=== PATIENT | female | born 1980 | race African-American/Black ===

== ENCOUNTER 2019-05-18 10:10 | Inpatient (IN) | payer OTHER ==
[2019-05-18 11:25] VITALS: BMI 24.7
--- NOTE | 2019-05-18 12:17 | HP ---
"CIWA Score Nausea/Vomitin-No Nausea/No Vomiting Muscle Tremors: None Anxiety: 0-No Anxiety, at Ease Agitation: 0-Normal Activity Paroxysmal Sweats: No Perspiration Orientation: 1-Uncertain about Date Tacttile Disturbances: 0-None Auditory Disturbances: 0-None Visual Disturbances: 3-Moderate Sensitivity Headache: 0-None Present CIWA-Ar Total Score: 4 - Admission Criteria OASAS Guidelines: Admission for Medically Managed Detox: Requires at least one of the followin. CIWA greater than 12 2. Seizures within the past 24 hours 3. Delirium tremens within the past 24 hours 4. Hallucinations within the past 24 hours 5. Acute intervention needed for co occurring medical disorder 6. Acute intervention needed for co occurring psychiatric disorder 7. Severe withdrawal that cannot be handled at a lower level of care (continued vomiting, continued diarrhea, abnormal vital signs) requiring intravenous medication and/or fluids 8. Admission ROS [facility] Allergies/Adverse Reactions: Allergies Allergy/AdvReac Type Severity Reaction Status Date / Time No Known Allergies Allergy Verified 05/18/19 11:13 History of Present Illness: Search Terms: sen ovalle, 1980 Search Date: 05/18/2019 12:12:35 PM The Drug Utilization Report below displays all of the controlled substance prescriptions, if any, that your patient has filled in the last twelve months. The information displayed on this report is compiled from pharmacy submissions to the Department, and accurately reflects the information as submitted by the pharmacies. This report was requested by: Gena Duncan | Reference #: [id number] There are no results for the search terms that you entered. pt here form [facility] , reports etoh use , cocaine 13 bags/day . pt is poorhistorian, falls asleep frequently during interview, awakened by verbal stimuli, states has not slept in 1 week. PMHX : asthma, ptsd , depression , anxiety ages 22 through 6 , children live in [place] . Exam Limitations: Clinical Condition, Intoxication - Review of Systems Constitutional: Loss of Appetite EENT: reports: No Symptoms Reported Respiratory: reports: See HPI Cardiac: reports: No Symptoms Reported GI: reports: Poor Appetite : reports: No Symptoms Reported Musculoskeletal: reports: No Symptoms Reported Integumentary: reports: No Symptoms Reported Neuro: reports: See HPI Endocrine: reports: No Symptoms Reported Psychiatric: reports: Disorientated, other (drowsy) Patient History - Smoking Cessation Smoking history: Smoker current status UNK - Substances abused Alcohol Substance route: Oral Frequency: Daily Amount used: \\1 PINT OF VODKA, 24 CAND OF BEER Age of first use: 13 Date of last use: 05/18/19 Crack Substance route: Smoking Frequency: Daily Amount used: 13 BAGS Age of first use: 24 Date of last use: 05/18/19 Admission Physical Exam BHS - Vital Signs Vital Signs: Vital Signs - 24 hr 05/18/19 05/18/19 11:16 11:27 Temperature 98.9 F 98.9 F Pulse Rate 113 H 113 H Respiratory 20 20 Rate Blood Pressure 101/66 101/66 - Physical General Appearance: Yes: Mild Distress, Intoxicated, Other (drowsy) HEENTM: Yes: EOMI, Hearing grossly Normal, Normocephalic, Muffled/Hoarse Voice Respiratory: Yes: Chest Non-Tender, Lungs Clear, Normal Breath Sounds, No Respiratory Distress, No Accessory Muscle Use Neck: Yes: No masses,lesions,Nodules, Trachea in good position Cardiology: Yes: Regular Rhythm, Regular Rate, S1, S2, Tachycardia Abdominal: Yes: Non Tender, Soft Musculoskeletal: Yes: Other (staggering gait) Extremities: Yes: Normal Range of Motion, Non-Tender Neurological: Yes: Respond to painful stimul, Disoriented Integumentary: Yes: Warm - Diagnostic (1) Alcohol intoxication Current Visit: Yes Status: Acute Qualifiers: Complication of substance-induced condition: uncomplicated Qualified Code(s ): F10.920 - Alcohol use, unspecified with intoxication, uncomplicated (2) Cocaine abuse Current Visit: Yes Status: Chronic Breathalyzer - Breathalyzer Breathalyzer: 0 Urine Drug Screen - Test Device Lot number: [id number] Expiration date: 03/10/21 - Control Is test valid?: Yes - Results Drug screen NEGATIVE: No Urine drug screen results: EL-Cocaine, BZO-Benzodiazepines Inpatient Rehab Admission - Rehab Decision to Admit Inpatient rehab admission?: No"
[2019-05-18] MEDS ORDERED: MAG HYDROX/AL HYDROX/SIMETH 30 ML UNIT-DOSE CUP PO PRN (12:33)
[2019-05-18] MEDS ORDERED: IBUPROFEN 400 MG TABLET (FP) PO PRN (12:33)
[2019-05-18] MEDS ORDERED: MELATONIN 5 MG TABLETS PO PRN (12:33)
[2019-05-18] MEDS ORDERED: hydrOXYzine PAMOATE 25 MG CAPSULE (FP) PO PRN (12:33)
[2019-05-18] MEDS ORDERED: MAGNESIUM HYDROX 2400MG/30ML ORAL SUSPENSION 30 ML CUP PO PRN (12:33)
[2019-05-18] MEDS ORDERED: BISMUTH SUBSALICYLATE 262 MG/15 ML BTL PO PRN (12:33)
[2019-05-18] MEDS ORDERED: MAGNESIUM CITRATE 300 ML BOTTLE PO PRN (12:33)
[2019-05-18] MEDS ORDERED: MENTHOL/PHENOL 1 EACH UD MM PRN (12:33)
[2019-05-18] MEDS ORDERED: ACETAMINOPHEN 325 MG TABLET (FP) PO PRN ×2 (12:33)
--- NOTE | 2019-05-18 14:51 | EKG ---
Test Reason : Blood Pressure : / mmHG Vent. Rate : 100 BPM Atrial Rate : 100 BPM P-R Int : 144 ms QRS Dur : 084 ms QT Int : 392 ms P-R-T Axes : 063 055 067 degrees QTc Int : 505 ms NORMAL SINUS RHYTHM LEFT ATRIAL ENLARGEMENT VOLTAGE CRITERIA FOR LEFT VENTRICULAR HYPERTROPHY NONSPECIFIC T WAVE ABNORMALITY PROLONGED QT ABNORMAL ECG NO PREVIOUS ECGS AVAILABLE Confirmed by MD MERA, ALIYAH ([id number]) on 05/18/2019 2:51:06 PM Referred By: STONE Confirmed By:ALIYAH TESFAYE MD
[2019-05-18] MEDS: diazePAM 5 MG TABLET PO SCH ×2 (15:55→23:02)
[2019-05-18] MEDS: diazePAM 5 MG TABLET PO PRN (18:46)
[2019-05-18] MEDS: THIAMINE HCL 100 MG TABLET (FP) PO SCH (23:02)
[2019-05-19] MEDS: diazePAM 5 MG TABLET PO SCH ×3 (06:16→22:30)
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
[2019-05-19 10:11] LABS: HEMATOCRIT 39.6 % (32.4-45.2); HEMOGLOBIN 12.8 GM/dL (10.7-15.3); MCH 28.2 pg (25.7-33.7); MCHC 32.4 g/dl (32.0-36.0); MEAN CELL VOLUME 86.8 fl (80-96); PLATELET COUNT 278 K/MM3 (134-434); RBC 4.56 M/mm3 (3.60-5.2); RDW 15.1 % (11.6-15.6); WHITE BLOOD COUNT 5.2 K/mm3 (4.0-10.0)
[2019-05-19] MEDS: PRENATAL VITAMINS W/ FOLIC ACID TABLET (FP) PO SCH (10:13)
[2019-05-19] MEDS: hydrOXYzine PAMOATE 50 MG CAPSULE (FP) PO PRN ×2 (10:13→18:21)
[2019-05-19 10:23] LABS: ALBUMIN 3.4 g/dl (3.4-5.0); BILIRUBIN,TOTAL 0.4 mg/dL (0.2-1); BLOOD UREA NITROGEN 9.9 mg/dL (7-18); CALCIUM 8.8 mg/dL (8.5-10.1); CREATININE 0.9 mg/dL (0.55-1.3); POTASSIUM 4.1 mmol/L (3.5-5.1)
[2019-05-19] MEDS: diazePAM 5 MG TABLET PO PRN ×2 (14:44→18:19)
--- NOTE | 2019-05-19 15:49 | PN ---
S CIWA - CIWA Score Nausea/Vomitin-Mild Nausea/No Vomiting Muscle Tremors: 2 Anxiety: 3 Agitation: 1-Slight > Activity Paroxysmal Sweats: 2 Orientation: 0-Oriented Tacttile Disturbances: 0-None Auditory Disturbances: 0-None Visual Disturbances: 1-Very Mild Sensitivity Headache: 2-Mild CIWA-Ar Total Score: 12 BHS Progress Note (SOAP) Subjective: 39 years old female admitted on 05/18/19 for alcohol withdrawal sx management treating with valium detox regiment patient is aggressive irritable threatening and oppositional toward staff nurse counselor and chief writer discussed the consequences of therapeutic chemical detox environment as well as the safety of all patients and staffers patient states that this is first [facility] admission and 2 weeks ago was admitted into another detox facility patient reports that he is not allow to returning to that facility patient says that he is taking psychotropic medications for PTSD and not taking any since been "kick out" from the facility patient verbally agrees to maintain self control but refuses to sign the contract for safety seen by psychiatrist resume psychotropic medications Objective: 05/19/19 15:59 Vital Signs Temperature 98.1 F 05/19/19 12:40 Pulse Rate 105 H 05/19/19 12:40 Respiratory Rate 18 05/19/19 12:40 Blood Pressure 141/87 05/19/19 12:40 O2 Sat by Pulse Oximetry (%) Laboratory Last Values WBC 5.2 K/mm3 (4.0-10.0) 05/19/19 07:30 RBC 4.56 M/mm3 (3.60-5.2) 05/19/19 07:30 Hgb 12.8 GM/dL (10.7-15.3) 05/19/19 07:30 Hct 39.6 % (32.4-45.2) 05/19/19 07:30 MCV 86.8 fl (80-96) 05/19/19 07:30 MCH 28.2 pg (25.7-33.7) 05/19/19 07:30 MCHC 32.4 g/dl (32.0-36.0) 05/19/19 07:30 RDW 15.1 % (11.6-15.6) 05/19/19 07:30 Plt Count 278 K/MM3 (134-434) 05/19/19 07:30 MPV 9.0 fl (7.5-11.1) 05/19/19 07:30 Sodium 137 mmol/L (136-145) 05/19/19 07:30 Potassium 4.1 mmol/L (3.5-5.1) 05/19/19 07:30 Chloride 104 mmol/L (98-107) 05/19/19 07:30 Carbon Dioxide 27 mmol/L (21-32) 05/19/19 07:30 Anion Gap 7 MMOL/L (8-16) L 05/19/19 07:30 BUN 9.9 mg/dL (7-18) 05/19/19 07:30 Creatinine 0.9 mg/dL (0.55-1.3) 05/19/19 07:30 Est GFR (CKD-EPI)AfAm 92.70 05/19/19 07:30 Est GFR (CKD-EPI)NonAf 79.98 05/19/19 07:30 Random Glucose 78 mg/dL (74-106) 05/19/19 07:30 Calcium 8.8 mg/dL (8.5-10.1) 05/19/19 07:30 Total Bilirubin 0.4 mg/dL (0.2-1) 05/19/19 07:30 AST 28 U/L (15-37) 05/19/19 07:30 ALT 20 U/L (13-61) 05/19/19 07:30 Alkaline Phosphatase 101 U/L (45-117) 05/19/19 07:30 Total Protein 7.0 g/dl (6.4-8.2) 05/19/19 07:30 Albumin 3.4 g/dl (3.4-5.0) 05/19/19 07:30 POC Urine HCG, Qual Negative 05/18/19 11:30 RPR Titer Nonreactive (NONREACTIVE) 05/19/19 07:30 lab noted Assessment: 05/19/19 15:59 alcohol withdrawal Plan: valium regiment
[2019-05-19] MEDS ORDERED: cloNIDine HCL 0.1 MG TABLET PO ONE (19:04)
[2019-05-19] MEDS ORDERED: PRAZOSIN HCL 1 MG CAPSULE PO SCH (22:00)
[2019-05-19] MEDS ORDERED: QUEtiapine FUMARATE 100 MG TABLET (FP) PO SCH (22:00)
[2019-05-19] MEDS: THIAMINE HCL 100 MG TABLET (FP) PO SCH (22:30)
[2019-05-20] MEDS: hydrOXYzine PAMOATE 50 MG CAPSULE (FP) PO PRN ×2 (05:25→11:38)
[2019-05-20] MEDS ORDERED: diazePAM 5 MG TABLET PO ONE (06:00)
[2019-05-20 06:14] VITALS: TEMP 97.7
[2019-05-20 09:20] VITALS: BP 125/75; PULSE 114
[2019-05-20] MEDS: PRENATAL VITAMINS W/ FOLIC ACID TABLET (FP) PO SCH (11:02)
--- NOTE | 2019-05-20 13:45 | DS ---
[facility] Detox Discharge Summary Admission Date: 05/18/19 Discharge Date: 05/20/19 - History Present History: Alcohol Dependence Additional Comments: 39 years old female admitted on 05/18/19 for alcohol withdrawal sx management treated with valium detox regiment patient has completed the valium regiment and tolerated well patient had anger out burst episode x 1 multidisciplinary team guidance encourage and support patient was doing well through out the detox seen by psychiatrist begin seroquel and prazosin alert oriented x 3 speech clearly coherently cardiac s1s2 regular rate rhythm ekg indicated left atrial enlargement patient is asymptomatic denies dizziness no shortness of breath no chest pain respiratory clear lungs bilaterally on auscultation extremities full range of motion - Physical Exam Results Vital Signs: Vital Signs Temperature 97.7 F 05/20/19 08:55 Pulse Rate 114 H 05/20/19 08:55 Respiratory Rate 16 05/20/19 08:55 Blood Pressure 125/75 05/20/19 08:55 O2 Sat by Pulse Oximetry (%) Pertinent Admission Physical Exam Findings: alcohol withdrawal Laboratory Last Values WBC 5.2 K/mm3 (4.0-10.0) 05/19/19 07:30 RBC 4.56 M/mm3 (3.60-5.2) 05/19/19 07:30 Hgb 12.8 GM/dL (10.7-15.3) 05/19/19 07:30 Hct 39.6 % (32.4-45.2) 05/19/19 07:30 MCV 86.8 fl (80-96) 05/19/19 07:30 MCH 28.2 pg (25.7-33.7) 05/19/19 07:30 MCHC 32.4 g/dl (32.0-36.0) 05/19/19 07:30 RDW 15.1 % (11.6-15.6) 05/19/19 07:30 Plt Count 278 K/MM3 (134-434) 05/19/19 07:30 MPV 9.0 fl (7.5-11.1) 05/19/19 07:30 Sodium 137 mmol/L (136-145) 05/19/19 07:30 Potassium 4.1 mmol/L (3.5-5.1) 05/19/19 07:30 Chloride 104 mmol/L (98-107) 05/19/19 07:30 Carbon Dioxide 27 mmol/L (21-32) 05/19/19 07:30 Anion Gap 7 MMOL/L (8-16) L 05/19/19 07:30 BUN 9.9 mg/dL (7-18) 05/19/19 07:30 Creatinine 0.9 mg/dL (0.55-1.3) 05/19/19 07:30 Est GFR (CKD-EPI)AfAm 92.70 05/19/19 07:30 Est GFR (CKD-EPI)NonAf 79.98 05/19/19 07:30 Random Glucose 78 mg/dL (74-106) 05/19/19 07:30 Calcium 8.8 mg/dL (8.5-10.1) 05/19/19 07:30 Total Bilirubin 0.4 mg/dL (0.2-1) 05/19/19 07:30 AST 28 U/L (15-37) 05/19/19 07:30 ALT 20 U/L (13-61) 05/19/19 07:30 Alkaline Phosphatase 101 U/L (45-117) 05/19/19 07:30 Total Protein 7.0 g/dl (6.4-8.2) 05/19/19 07:30 Albumin 3.4 g/dl (3.4-5.0) 05/19/19 07:30 POC Urine HCG, Qual Negative 05/18/19 11:30 RPR Titer Nonreactive (NONREACTIVE) 05/19/19 07:30 lab noted - Treatment Hospital Course: Detox Protocol Followed, Detoxed Safely, Responded well, Discharged Condition Good, Rehab Referral Accepted Patient has Accepted [facility] - Medication Discharge Medications: Ambulatory Orders Albuterol Sulfate Inhaler - [Ventolin HFA Inhaler -] 2 inh PO Q4H PRN 05/18/19 Quetiapine Fumarate [Seroquel -] 100 mg PO HS 05/18/19 traZODone HCL [Desyrel -] 100 mg PO HS 05/18/19 Escitalopram Oxalate [Lexapro -] 20 mg PO TID 05/20/19 Prazosin HCl [Minipress] 2 mg PO HS 05/20/19 - Diagnosis (1) Alcohol dependence with uncomplicated intoxication Current Visit: Yes Status: Acute (2) Substance induced mood disorder Current Visit: Yes Status: Suspected - AMA Did Patient Leave Against Medical Advice: No CIWA Score - CIWA Score Nausea/Vomitin-No Nausea/No Vomiting Muscle Tremors: 1-None Visible, but [place] Anxiety: 2 Agitation: 0-Normal Activity Paroxysmal Sweats: 1-Minimal Palms Moist Orientation: 0-Oriented Tacttile Disturbances: 0-None Auditory Disturbances: 0-None Visual Disturbances: 0-None Headache: 2-Mild CIWA-Ar Total Score: 6
== END 2019-05-20 14:26 | disposition other institution (70) | DRG 774 ==
LOC: YASAS 10:10 → Y3N 13:39
PROVIDERS: ADMIT Allergy & Immunology; ATTEND Allergy & Immunology
PROC: HZ2ZZZZ Detoxification Services for Substance Abuse Treatment (ICD-10-PCS; principal; 2019-05-18)
DX: F10.230 Alcohol dependence with withdrawal, uncomplicated (principal); F14.20 Cocaine dependence, uncomplicated; F19.24 Other psychoactive substance dependence with psychoactive substance-induced mood disorder; F19.282 Other psychoactive substance dependence with psychoactive substance-induced sleep disorder; F43.10 Post-traumatic stress disorder, unspecified; J45.909 Unspecified asthma, uncomplicated
CPT/HCPCS: 36415; 71045-TC-FY; 80053; 81025; 85027; 86593; 93005; 93010; J0735

== ENCOUNTER 2019-05-20 11:37 | Inpatient (IN) | payer OTHER ==
[2019-05-20] MEDS ORDERED: ACETAMINOPHEN 325 MG TABLET (FP) PO PRN ×2 (13:47→13:49)
[2019-05-20] MEDS ORDERED: MAG HYDROX/AL HYDROX/SIMETH 30 ML UNIT-DOSE CUP PO PRN ×3 (13:47→13:54)
[2019-05-20] MEDS ORDERED: IBUPROFEN 400 MG TABLET (FP) PO PRN ×3 (13:47→13:54)
[2019-05-20] MEDS ORDERED: LOPERAMIDE HCL 2 MG CAPSULE PO PRN ×3 (13:47→13:54)
[2019-05-20] MEDS ORDERED: MAGNESIUM HYDROX 2400MG/30ML ORAL SUSPENSION 30 ML CUP PO PRN ×3 (13:47→13:54)
[2019-05-20] MEDS ORDERED: MAGNESIUM CITRATE 300 ML BOTTLE PO PRN ×3 (13:47→13:54)
[2019-05-20] MEDS ORDERED: P-EPHED 60MG/TRIPROLIDI 2.5MG TABLET PO PRN ×3 (13:47→13:54)
[2019-05-20] MEDS ORDERED: guaiFENesin 200 MG/10 ML 10 ML UNIT-DOSE CUPS PO PRN ×3 (13:47→13:54)
[2019-05-20] MEDS ORDERED: MENTHOL/PHENOL 1 EACH UD MM PRN ×3 (13:47→13:54)
--- NOTE | 2019-05-20 13:47 | HP ---
[facility] Rehab Assess/Revision - Admission History Admitted to Rehab from: [facility] Date of Admission to Rehab: 05/20/19 - Vital signs Vital Signs: Vital Signs Period Temp Pulse Resp BP Sys/Palma Pulse Ox Last 24 Hr 97.8 F 98 18 135/92 - Findings Detox History & Physical reviewed: Yes Concur with findings: Yes Comments/Additional Findings: transferred from detox to rehab admission as per protocol Inpatient Rehab Admission - Rehab Decision to Admit Inpatient rehab admission?: Yes - Initial Determination Are CD services needed?: Yes Free of communicable disease: Yes Not in need of hospitalization: Yes - Rehab Admission Criteria Previous failed treatment: Yes Poor recovery environment: Yes Comorbidities: Yes Lacks judgement: Yes Patient is meeting Inpatient Rehab admission criteria:: Yes
[2019-05-20] MEDS ORDERED: hydrOXYzine PAMOATE 50 MG CAPSULE (FP) PO PRN (13:49)
[2019-05-20] MEDS: hydrOXYzine PAMOATE 50 MG CAPSULE (FP) PO PRN ×2 (16:51→21:05)
[2019-05-20] MEDS: ALBUTEROL SO4 HFA INHALER IH PRN (19:53)
[2019-05-20] MEDS: THIAMINE HCL 100 MG TABLET (FP) PO SCH (21:04)
[2019-05-20] MEDS: PRAZOSIN HCL 1 MG CAPSULE PO SCH (21:04)
[2019-05-20] MEDS: MELATONIN 5 MG TABLETS PO PRN (21:05)
[2019-05-20] MEDS ORDERED: MELATONIN 5 MG TABLETS PO PRN ×2 (22:00)
[2019-05-20] MEDS ORDERED: QUEtiapine FUMARATE 100 MG TABLET (FP) PO SCH ×2 (22:00)
[2019-05-20] MEDS ORDERED: THIAMINE HCL 100 MG TABLET (FP) PO SCH ×2 (22:00)
[2019-05-21] MEDS: hydrOXYzine PAMOATE 50 MG CAPSULE (FP) PO PRN ×3 (07:17→17:44)
[2019-05-21] MEDS: PRENATAL VITAMINS W/ FOLIC ACID TABLET (FP) PO SCH (09:28)
[2019-05-21] MEDS ORDERED: PRENATAL VITAMINS W/ FOLIC ACID TABLET (FP) PO SCH ×2 (10:00)
--- NOTE | 2019-05-21 12:37 | PN ---
[facility] Progress Note Note: Pt is a 39 y/o female with a hx of KACY-alcohol,cocaine admitted to rehab from [address] [place] [address]. Pt reports she has no primary care and goes to [facility] for medical care. Reports no steady address and has gone to [facility] or [facility] for medical care. PMHx:Asthma. Psych Hx:PTSD,Depression,Anxiety. Vital Signs - 24 hr 05/20/19 05/21/19 05/21/19 22:00 00:38 03:34 Temperature Pulse Rate 101 H Respiratory 18 18 Rate Blood Pressure 141/85 05/21/19 05/21/19 06:33 06:49 Temperature 98.1 F Pulse Rate 93 H Respiratory 18 18 Rate Blood Pressure 135/91 Alert o x 3 nad oob ambulating with steady gait extremities/skin:no edema;skin intact. A/P KACY new rehab pt Maintain safety increase po fluids cont rehab D/w pt about need to connect with primary care once stable at a location.
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
[2019-05-21] MEDS: QUEtiapine FUMARATE 50 MG TABLET PO SCH (21:10)
[2019-05-21] MEDS: PRAZOSIN HCL 1 MG CAPSULE PO SCH (21:10)
[2019-05-21] MEDS: THIAMINE HCL 100 MG TABLET (FP) PO SCH (21:10)
[2019-05-21] MEDS ORDERED: ALBUTEROL SO4 0.083% IH SOL 2.5 MG/3 ML VIAL.NEB. NEB PRN (21:11)
[2019-05-22] MEDS: hydrOXYzine PAMOATE 50 MG CAPSULE (FP) PO PRN ×3 (07:43→18:13)
[2019-05-22] MEDS: ESCITALOPRAM OXALATE 10 MG TABLET PO SCH (09:21)
[2019-05-22] MEDS: PRENATAL VITAMINS W/ FOLIC ACID TABLET (FP) PO SCH (09:21)
[2019-05-22] MEDS: ALBUTEROL SO4 HFA INHALER IH PRN (09:21)
[2019-05-22] MEDS: ACETAMINOPHEN 325 MG TABLET (FP) PO PRN (18:12)
[2019-05-22] MEDS: THIAMINE HCL 100 MG TABLET (FP) PO SCH (21:10)
[2019-05-22] MEDS: PRAZOSIN HCL 1 MG CAPSULE PO SCH (21:10)
[2019-05-22] MEDS: QUEtiapine FUMARATE 50 MG TABLET PO SCH (21:10)
[2019-05-23] MEDS: hydrOXYzine PAMOATE 50 MG CAPSULE (FP) PO PRN ×4 (06:40→21:30)
[2019-05-23] MEDS: PRENATAL VITAMINS W/ FOLIC ACID TABLET (FP) PO SCH (09:45)
[2019-05-23] MEDS: ESCITALOPRAM OXALATE 10 MG TABLET PO SCH (09:45)
[2019-05-23] MEDS: ACETAMINOPHEN 325 MG TABLET (FP) PO PRN (18:08)
[2019-05-23] MEDS ORDERED: PT OWN MED DRAWER 7, Y5N ONE (20:28)
[2019-05-23] MEDS: THIAMINE HCL 100 MG TABLET (FP) PO SCH (21:01)
[2019-05-23] MEDS: QUEtiapine FUMARATE 50 MG TABLET PO SCH (21:01)
[2019-05-23] MEDS: PRAZOSIN HCL 1 MG CAPSULE PO SCH (21:02)
[2019-05-24] MEDS: hydrOXYzine PAMOATE 50 MG CAPSULE (FP) PO PRN ×4 (03:39→21:13)
[2019-05-24] MEDS: ESCITALOPRAM OXALATE 10 MG TABLET PO SCH (09:00)
[2019-05-24] MEDS: PRENATAL VITAMINS W/ FOLIC ACID TABLET (FP) PO SCH (09:00)
--- NOTE | 2019-05-24 15:21 | PN ---
Psychiatric Progress Note Vital Signs: Vital Signs Period Temp Pulse Resp BP Sys/Palma Pulse Ox Last 24 Hr 98.0 F 85-86 16-18 120-143/90-92 Date of Session: 05/24/19 Chief Complaint:: " I still have nightmares ". HPI: Called to re-evaluate this patient, seen two days ago, for complaints of insomnia + nightmares. Hospital course is otherwise unremarkable. ROS: Unremarkable. Patient is noted as ambulatory, well-related, active and cognitively intact. Current Medications: Active Medications Generic Name Dose Route Start Last Admin Trade Name Freq PRN Reason Stop Dose Admin Acetaminophen 650 mg 05/20/19 13:54 05/23/19 18:08 Tylenol - PO 650 mg Q4H PRN Administration FEVER Al Hydroxide/Mg Hydroxide 30 ml 05/20/19 13:54 Mylanta Oral Suspension - PO Q6H PRN DYSPEPSIA Albuterol Sulfate 2 puff 05/20/19 13:58 05/22/19 09:21 Ventolin Hfa Inhaler - IH 2 puff Q4H PRN Administration ASTHMA Albuterol Sulfate 1 amp 05/21/19 21:11 Ventolin 0.083% Nebulizer Soln - NEB Q6H PRN SHORT OF BREATH/WHEEZING Escitalopram Oxalate 10 mg 05/22/19 10:00 05/24/19 09:00 Lexapro - PO 10 mg DAILY CONNER Administration Eucalyptus/Menthol/Phenol/Sorbitol 1 each 05/20/19 13:54 Cepastat Lozenge - MM Q4H PRN SORE THROAT Guaifenesin 10 ml 05/20/19 13:54 05/22/19 09:24 Robitussin - PO 10 ml Q6H PRN Administration COUGH Hydroxyzine Pamoate 50 mg 05/20/19 13:54 05/24/19 08:57 Vistaril - PO 50 mg Q4H PRN Administration AGITATION Ibuprofen 400 mg 05/20/19 13:54 Motrin - PO Q6H PRN Pain Level 4-6 Loperamide HCl 4 mg 05/20/19 13:54 Imodium - PO Q6H PRN DIARRHEA Magnesium Citrate 300 ml 05/20/19 13:54 Citroma - PO Q48H PRN CONSTIPATION Magnesium Hydroxide 30 ml 05/20/19 13:54 Milk Of Magnesia - PO DAILY PRN CONSTIPATION Melatonin 5 mg 05/20/19 22:00 05/20/19 21:05 Melatonin PO 5 mg HS PRN Administration INSOMNIA Prazosin HCl 2 mg 05/20/19 22:00 05/23/19 21:02 Minipress - PO 2 mg HS CONNER Administration Multivit/Folic Acid/Iron 1 tab 05/21/19 10:00 05/24/19 09:00 Vitamins (Sjr) - PO 1 tab DAILY CONNER Administration Pseudoephedrine/Triprolidine 1 combo 05/20/19 13:54 Actifed - PO TID PRN NASAL CONGESTION Quetiapine Fumarate 200 mg 05/24/19 22:00 Seroquel - PO HS CONNER Thiamine HCl 100 mg 05/20/19 22:00 05/23/19 21:01 Vitamin B1 - PO 100 mg HS CONNER Administration Medication(s) Change(s): Seroquel dose is raised to 200 mg po hs. Informed consent (verbal) secured from the patient. Plan of care is accepted by patient. Current Side Effect: No Lab tests ordered: No Lab tests reviewed: Yes Provider note:: Chart reviewed. Vitals checked : normal. Patient is interviewed in the presence of immigration guard Heidi Chavez (with patient's verbal permission) . Offers vague complaints of nightmares (unable to describe) and insomnia. " I need more seroquel. I used to be on 200 mg at night." Patient is observed as well rested, decently groomed and cooperative. Receptive to teaching. Seroquel dose adjusted. Patient is in agreement. Stable mental status. See MSE report for details. Patient is at her baseline. Total face to face time:: 25 Mental Status Exam - Mental Status Exam Alert and Oriented to: Time, Place, Person Cognitive Function: Good Patient Appearance: Well Groomed Mood: Hopeful, Euthymic Affect: Appropriate, Normal Range Patient Behavior: Appropriate, Cooperative Speech Pattern: Clear, Appropriate Voice Loudness: Normal Thought Process: Intact, Goal Oriented Thought Disorder: Not Present Hallucinations: Denies Suicidal Ideation: Denies Homicidal Ideation: Denies Insight/Judgement: Fair Sleep: Poorly, Difficulty falling asleep Appetite: Good Gait/Station: Normal Psychiatric Treatment Plan - Problem List (1) Alcohol use disorder Current Visit: Yes Comment: . (2) Cocaine dependence Current Visit: Yes Comment: . (3) PTSD (post-traumatic stress disorder) Current Visit: Yes Comment: .As per self-report. (4) History of depression Current Visit: Yes Comment: . (5) Insomnia Current Visit: Yes Comment: .
[2019-05-24] MEDS: PRAZOSIN HCL 1 MG CAPSULE PO SCH (21:13)
[2019-05-24] MEDS: QUEtiapine FUMARATE 200 MG TABLET PO SCH (21:14)
[2019-05-24] MEDS: THIAMINE HCL 100 MG TABLET (FP) PO SCH (21:14)
[2019-05-24] MEDS: MELATONIN 5 MG TABLETS PO PRN (21:14)
[2019-05-25] MEDS: hydrOXYzine PAMOATE 50 MG CAPSULE (FP) PO PRN ×3 (06:23→18:13)
[2019-05-25] MEDS: ESCITALOPRAM OXALATE 10 MG TABLET PO SCH (09:48)
[2019-05-25] MEDS: PRENATAL VITAMINS W/ FOLIC ACID TABLET (FP) PO SCH (09:49)
[2019-05-25] MEDS ORDERED: PT OWN MED DRAWER 7, Y5N ONE (14:22)
[2019-05-25] MEDS: ACETAMINOPHEN 325 MG TABLET (FP) PO PRN (18:12)
[2019-05-25] MEDS: QUEtiapine FUMARATE 200 MG TABLET PO SCH (21:24)
[2019-05-25] MEDS: THIAMINE HCL 100 MG TABLET (FP) PO SCH (21:24)
[2019-05-25] MEDS: PRAZOSIN HCL 1 MG CAPSULE PO SCH (21:24)
[2019-05-26] MEDS: hydrOXYzine PAMOATE 50 MG CAPSULE (FP) PO PRN ×4 (00:41→19:35)
[2019-05-26] MEDS: ACETAMINOPHEN 325 MG TABLET (FP) PO PRN ×3 (06:28→19:35)
[2019-05-26] MEDS: PRENATAL VITAMINS W/ FOLIC ACID TABLET (FP) PO SCH (09:59)
[2019-05-26] MEDS: ESCITALOPRAM OXALATE 10 MG TABLET PO SCH (09:59)
[2019-05-26] MEDS: ALBUTEROL SO4 HFA INHALER IH PRN (10:00)
[2019-05-26] MEDS ORDERED: ALBUTEROL SO4 0.083% IH SOL 2.5 MG/3 ML VIAL.NEB. NEB PRN (19:11)
[2019-05-26] MEDS ORDERED: PT OWN MED DRAWER 7, Y5N ONE ×2 (20:06→21:09)
[2019-05-26] MEDS: THIAMINE HCL 100 MG TABLET (FP) PO SCH (21:08)
[2019-05-26] MEDS: PRAZOSIN HCL 1 MG CAPSULE PO SCH (21:08)
[2019-05-26] MEDS: QUEtiapine FUMARATE 200 MG TABLET PO SCH (21:08)
[2019-05-27] MEDS: hydrOXYzine PAMOATE 50 MG CAPSULE (FP) PO PRN ×3 (06:05→15:53)
[2019-05-27] MEDS: ACETAMINOPHEN 325 MG TABLET (FP) PO PRN ×2 (07:31→15:53)
[2019-05-27] MEDS: ALBUTEROL SO4 HFA INHALER IH PRN (07:32)
[2019-05-27] MEDS ORDERED: PT OWN MED DRAWER 7, Y5N ONE (07:33)
[2019-05-27] MEDS: PRENATAL VITAMINS W/ FOLIC ACID TABLET (FP) PO SCH (10:09)
[2019-05-27] MEDS: ESCITALOPRAM OXALATE 10 MG TABLET PO SCH (10:09)
[2019-05-27] MEDS: PRAZOSIN HCL 1 MG CAPSULE PO SCH (21:13)
[2019-05-27] MEDS: THIAMINE HCL 100 MG TABLET (FP) PO SCH (21:13)
[2019-05-27] MEDS: QUEtiapine FUMARATE 200 MG TABLET PO SCH (21:13)
[2019-05-28] MEDS: hydrOXYzine PAMOATE 50 MG CAPSULE (FP) PO PRN ×2 (02:53→09:26)
[2019-05-28] MEDS: ALBUTEROL SO4 HFA INHALER IH PRN (09:26)
[2019-05-28] MEDS: PRENATAL VITAMINS W/ FOLIC ACID TABLET (FP) PO SCH (09:27)
[2019-05-28] MEDS: ESCITALOPRAM OXALATE 10 MG TABLET PO SCH (09:27)
[2019-05-28] MEDS: ACETAMINOPHEN 325 MG TABLET (FP) PO PRN (09:28)
[2019-05-28] MEDS: PRAZOSIN HCL 1 MG CAPSULE PO SCH (21:07)
[2019-05-28] MEDS: THIAMINE HCL 100 MG TABLET (FP) PO SCH (21:07)
[2019-05-28] MEDS: QUEtiapine FUMARATE 200 MG TABLET PO SCH (21:07)
[2019-05-29] MEDS: hydrOXYzine PAMOATE 50 MG CAPSULE (FP) PO PRN ×2 (01:56→09:12)
[2019-05-29 07:05] VITALS: TEMP 97.5
--- NOTE | 2019-05-29 08:57 | PN ---
[facility] Progress Note Note: Patient is discharged today. Scripts for 30 days supply of medications(Seroquel 200 mg/hs, Prazosin 2 mg/hs, Lexapro 10 mg/day) are electronically transmitted to [facility] at [address] [place] [address]
--- NOTE | 2019-05-29 09:04 | DS ---
[facility] - [facility] Admission Date: 05/20/19 Discharge Date: 05/29/19 - History Present History: Alcohol dependence, Cocaine dependence Pertinent Past History: pt admitted from [facility]; reports etoh use and cocaine 13 bags/ day. PMHX : asthma, ptsd , depression , anxiety - Discharge Physical Exam Vital Signs: Vital Signs Temperature 97.5 F L 05/29/19 06:15 Pulse Rate 87 05/29/19 06:15 Respiratory Rate 16 05/29/19 06:15 Blood Pressure 135/89 05/29/19 06:15 O2 Sat by Pulse Oximetry (%) Pertinent Admission Physical Exam Findings: Physical General Appearance: No apparent distress HEENTM: Normocephalic, PERRLA Respiratory: Lungs Clear, Neck: Supple Cardiology: S1, S2, Abdominal: +BS, Non Tender, Soft Musculoskeletal: steady gait, full ROM, full weight bearing Neurological: CN 2-12 intact - Treatment Discharge Condition: Outpatient referral accepted (Will go to [facility] for 1 week, then [facility] for continued treatment. Medically stable for discharge.) Hospital Course: Patient attended groups, had 1:1 with her counselor, was seen by the psychiatric service. She had no acute or urgent medical problems while in rehab. - Medication Discharge Medications: Ambulatory Orders Albuterol Sulfate Inhaler - [Ventolin HFA Inhaler -] 2 inh PO Q4H PRN #1 inhaler 05/29/19 Escitalopram Oxalate [Lexapro -] 10 mg PO DAILY #30 tablet 05/29/19 Melatonin 5 mg PO HS PRN #14 tab 05/29/19 Prazosin HCl [Minipress] 2 mg PO HS #30 capsule 05/29/19 Quetiapine Fumarate [Seroquel -] 200 mg PO HS #30 tablet 05/29/19 - Medication-Assisted Treatment (MAT) Medication-Assisted Treatment (MAT): No - Discharge Instructions Diet, activity, other medical instructions: Diet: as tolerated; avoid tree nuts-read labels, advise servers when eating in restaurants. Activity: as tolerated Other medical instructions: Please follow up with aftercare referral. - Diagnosis (1) Alcohol use disorder Current Visit: Yes Status: Chronic (2) Cocaine dependence Current Visit: Yes Status: Chronic - Follow-up Referral Minutes to complete discharge: 15 - AMA Did Patient Leave Against Medical Advice: No
[2019-05-29] MEDS: PRENATAL VITAMINS W/ FOLIC ACID TABLET (FP) PO SCH (09:11)
[2019-05-29] MEDS: ESCITALOPRAM OXALATE 10 MG TABLET PO SCH (09:11)
[2019-05-29 09:23] VITALS: BP 121/79; PULSE 93
== END 2019-05-29 09:30 | disposition home or self-care (01) | DRG 772 ==
LOC: YASAS 11:37 → Y3E 11:38
PROVIDERS: ADMIT Allergy & Immunology; ATTEND Allergy & Immunology
PROC: HZ42ZZZ Group Counseling for Substance Abuse Treatment, Cognitive-Behavioral (ICD-10-PCS; principal; 2019-05-20)
DX: F10.20 Alcohol dependence, uncomplicated (principal); F14.20 Cocaine dependence, uncomplicated; F19.24 Other psychoactive substance dependence with psychoactive substance-induced mood disorder; F41.9 Anxiety disorder, unspecified; F32.9 Major depressive disorder, single episode, unspecified; F43.10 Post-traumatic stress disorder, unspecified; G47.00 Insomnia, unspecified; J45.909 Unspecified asthma, uncomplicated; Z91.410 Personal history of adult physical and sexual abuse; Z91.018 Allergy to other foods; Z91.19 Patient's noncompliance with other medical treatment and regimen

== ENCOUNTER 2021-06-07 20:08 | Inpatient (IN) | payer OTHER ==
[2021-06-07 20:46] VITALS: BMI 27.4
[2021-06-07] MEDS ORDERED: ALBUTEROL SO4 HFA INHALER IH PRN (21:32)
[2021-06-07] MEDS ORDERED: NICOTINE POLACRILEX 2 MG GUM BUC PRN (21:33)
[2021-06-07] MEDS ORDERED: MAG HYDROX/AL HYDROX/SIMETH 30 ML UNIT-DOSE CUP PO PRN (21:33)
[2021-06-07] MEDS ORDERED: LOPERAMIDE HCL 2 MG CAPSULE PO PRN (21:33)
[2021-06-07] MEDS ORDERED: ONDANSETRON *ODT* 4 MG TABLET SL PRN (21:33)
[2021-06-07] MEDS ORDERED: ACETAMINOPHEN 325 MG TABLET (FP) PO PRN ×2 (21:33)
[2021-06-07] MEDS ORDERED: MAGNESIUM HYDROX 2400MG/30ML ORAL SUSPENSION 30 ML CUP PO PRN (21:33)
[2021-06-07] MEDS ORDERED: MAGNESIUM CITRATE 300 ML BOTTLE PO PRN (21:33)
[2021-06-07] MEDS ORDERED: IBUPROFEN 400 MG TABLET (FP) PO PRN (21:33)
[2021-06-07] MEDS ORDERED: NICOTINE 10 MG CARTRIDGE (INHALER) IH PRN (21:33)
[2021-06-07] MEDS ORDERED: MENTHOL/PHENOL 1 EACH UD MM PRN (21:33)
[2021-06-07] MEDS ORDERED: BISMUTH SUBSALICYLATE 524 MG/30 ML PO PRN (21:33)
[2021-06-07] MEDS ORDERED: diazePAM 5 MG TABLET PO PRN (21:35)
[2021-06-08] MEDS ORDERED: METHOCARBAMOL 500 MG TABLET ONE (00:54)
[2021-06-08] MEDS: THIAMINE HCL 100 MG TABLET (FP) PO SCH ×2 (01:00→23:27)
[2021-06-08] MEDS: METHOCARBAMOL 500 MG TABLET PO PRN ×2 (01:00→19:03)
[2021-06-08] MEDS: hydrOXYzine PAMOATE 25 MG CAPSULE (FP) PO SCH ×6 (01:10→23:26)
[2021-06-08] MEDS ORDERED: diazePAM 5 MG TABLET ONE (09:41)
[2021-06-08] MEDS ORDERED: hydrOXYzine PAMOATE 25 MG CAPSULE (FP) PO ONE (09:41)
[2021-06-08] MEDS: PRENATAL VITAMINS W/ FOLIC ACID TABLET (FP) PO SCH (09:44)
[2021-06-08] MEDS: diazePAM 5 MG TABLET PO SCH ×3 (10:00→23:27)
[2021-06-08] MEDS ORDERED: cloNIDine HCL 0.1 MG TABLET PO PRN (11:30)
[2021-06-08 12:51] LABS: HEMATOCRIT 31.2 % (32.4-45.2); HEMOGLOBIN 10.2 GM/dL (10.7-15.3); MCH 27.4 pg (25.7-33.7); MCHC 32.7 g/dl (32.0-36.0); MEAN CELL VOLUME 83.6 fl (80-96); MEAN PLT VOLUME 9.1 fl (7.5-11.1); PLATELET COUNT 184 10^3/uL (134-434); RBC 3.73 M/mm3 (3.60-5.2); RDW 14.1 % (11.6-15.6)
[2021-06-08 12:59] LABS: CALCIUM 8.7 mg/dL (8.5-10.1)
[2021-06-08 13:00] LABS: ALBUMIN 3.4 g/dl (3.4-5.0); BLOOD UREA NITROGEN 9.3 mg/dL (7-18)
[2021-06-08 13:01] LABS: CREATININE 0.7 mg/dL (0.55-1.3)
[2021-06-08 13:02] LABS: TOT PROT 6.7 g/dl (6.4-8.2)
[2021-06-08 13:03] LABS: BILIRUBIN,TOTAL 0.7 mg/dL (0.2-1)
[2021-06-08] MEDS: MELATONIN 5 MG TABLETS PO PRN (23:26)
[2021-06-08] MEDS: PRAZOSIN HCL 1 MG CAPSULE PO SCH (23:27)
[2021-06-09] MEDS: diazePAM 5 MG TABLET PO SCH ×4 (06:05→23:04)
[2021-06-09] MEDS: hydrOXYzine PAMOATE 25 MG CAPSULE (FP) PO SCH ×5 (06:05→23:03)
[2021-06-09] MEDS: PRENATAL VITAMINS W/ FOLIC ACID TABLET (FP) PO SCH (11:14)
[2021-06-09] MEDS: METHOCARBAMOL 500 MG TABLET PO PRN ×2 (11:15→18:19)
[2021-06-09] MEDS: MELATONIN 5 MG TABLETS PO PRN (23:03)
[2021-06-09] MEDS: THIAMINE HCL 100 MG TABLET (FP) PO SCH (23:03)
[2021-06-09] MEDS: PRAZOSIN HCL 1 MG CAPSULE PO SCH (23:04)
[2021-06-10] MEDS: diazePAM 5 MG TABLET PO SCH ×3 (05:53→23:14)
[2021-06-10] MEDS: hydrOXYzine PAMOATE 25 MG CAPSULE (FP) PO SCH ×5 (05:54→23:13)
[2021-06-10] MEDS: PRENATAL VITAMINS W/ FOLIC ACID TABLET (FP) PO SCH (10:55)
[2021-06-10] MEDS: diazePAM 5 MG TABLET PO PRN ×2 (10:56→18:02)
[2021-06-10] MEDS: METHOCARBAMOL 500 MG TABLET PO PRN (10:58)
[2021-06-10] MEDS: ESCITALOPRAM OXALATE 10 MG TABLET PO SCH (12:21)
[2021-06-10] MEDS: POTASSIUM CHLORIDE ORAL LIQUID 20 MEQ/15 ML PO SCH ×2 (14:07→23:12)
[2021-06-10] MEDS: MELATONIN 5 MG TABLETS PO PRN (23:12)
[2021-06-10] MEDS: PRAZOSIN HCL 1 MG CAPSULE PO SCH (23:13)
[2021-06-10] MEDS: THIAMINE HCL 100 MG TABLET (FP) PO SCH (23:13)
[2021-06-10] MEDS: QUEtiapine FUMARATE 100 MG TABLET (FP) PO SCH (23:13)
[2021-06-11] MEDS: hydrOXYzine PAMOATE 25 MG CAPSULE (FP) PO SCH ×5 (06:22→22:27)
[2021-06-11] MEDS: diazePAM 5 MG TABLET PO SCH ×2 (06:22→18:06)
[2021-06-11] MEDS: POTASSIUM CHLORIDE ORAL LIQUID 20 MEQ/15 ML PO SCH ×2 (10:32→22:25)
[2021-06-11] MEDS: PRENATAL VITAMINS W/ FOLIC ACID TABLET (FP) PO SCH (10:32)
[2021-06-11] MEDS: METHOCARBAMOL 500 MG TABLET PO PRN (10:33)
[2021-06-11] MEDS: ESCITALOPRAM OXALATE 10 MG TABLET PO SCH (10:33)
[2021-06-11] MEDS: PRAZOSIN HCL 1 MG CAPSULE PO SCH (22:25)
[2021-06-11] MEDS: QUEtiapine FUMARATE 100 MG TABLET (FP) PO SCH (22:25)
[2021-06-11] MEDS: THIAMINE HCL 100 MG TABLET (FP) PO SCH (22:25)
[2021-06-12] MEDS ORDERED: diazePAM 5 MG TABLET PO ONE (06:00)
[2021-06-12] MEDS: hydrOXYzine PAMOATE 25 MG CAPSULE (FP) PO SCH ×5 (06:06→23:02)
[2021-06-12] MEDS: PRENATAL VITAMINS W/ FOLIC ACID TABLET (FP) PO SCH (10:18)
[2021-06-12] MEDS: ESCITALOPRAM OXALATE 10 MG TABLET PO SCH (10:18)
[2021-06-12] MEDS: POTASSIUM CHLORIDE ORAL LIQUID 20 MEQ/15 ML PO SCH ×2 (10:20→23:03)
[2021-06-12] MEDS: QUEtiapine FUMARATE 100 MG TABLET (FP) PO SCH (23:02)
[2021-06-12] MEDS: THIAMINE HCL 100 MG TABLET (FP) PO SCH (23:02)
[2021-06-12] MEDS: PRAZOSIN HCL 1 MG CAPSULE PO SCH (23:02)
[2021-06-13] MEDS: hydrOXYzine PAMOATE 25 MG CAPSULE (FP) PO SCH ×2 (06:20→10:14)
[2021-06-13] MEDS: POTASSIUM CHLORIDE ORAL LIQUID 20 MEQ/15 ML PO SCH (10:14)
[2021-06-13] MEDS: PRENATAL VITAMINS W/ FOLIC ACID TABLET (FP) PO SCH (10:14)
[2021-06-13] MEDS: ESCITALOPRAM OXALATE 10 MG TABLET PO SCH (10:14)
[2021-06-13] MEDS ORDERED: COLLOIDAL OATMEAL 1 BAR EACH TP PRN (10:22)
[2021-06-13 10:40] LABS: CALCIUM 8.4 mg/dL (8.5-10.1)
[2021-06-13 10:41] LABS: ALBUMIN 3.6 g/dl (3.4-5.0); BLOOD UREA NITROGEN 10.2 mg/dL (7-18)
[2021-06-13 10:44] LABS: CREATININE 0.8 mg/dL (0.55-1.3)
[2021-06-13 10:45] LABS: BILIRUBIN,TOTAL 0.2 mg/dL (0.2-1); TOT PROT 7.4 g/dl (6.4-8.2)
[2021-06-13 13:18] VITALS: BP 134/82; PULSE 95; TEMP 98
== END 2021-06-13 14:20 | disposition other institution (70) | DRG 774 ==
LOC: YASAS 20:08 → Y3N 23:18 → UNDOADMIN 23:18 → Y6N 06-08 10:38
PROVIDERS: ADMIT Allergy & Immunology; ATTEND Allergy & Immunology
PROC: HZ2ZZZZ Detoxification Services for Substance Abuse Treatment (ICD-10-PCS; principal; 2021-06-08)
DX: F10.230 Alcohol dependence with withdrawal, uncomplicated (principal); F14.20 Cocaine dependence, uncomplicated; F15.20 Other stimulant dependence, uncomplicated; F19.280 Other psychoactive substance dependence with psychoactive substance-induced anxiety disorder; F19.24 Other psychoactive substance dependence with psychoactive substance-induced mood disorder; E87.6 Hypokalemia; J45.20 Mild intermittent asthma, uncomplicated; Z91.018 Allergy to other foods
CPT/HCPCS: 36415; 71046-TC-FY; 80053; 85027; 86780; 87811; C9803; J0735; U0003; U0005

== ENCOUNTER 2021-06-13 14:34 | Inpatient (IN) | payer OTHER ==
[2021-06-13] MEDS ORDERED: NICOTINE 10 MG CARTRIDGE (INHALER) IH PRN ×2 (15:26→15:28)
[2021-06-13] MEDS ORDERED: NICOTINE POLACRILEX 2 MG GUM BC PRN (15:26)
[2021-06-13] MEDS ORDERED: P-EPHED 60MG/TRIPROLIDI 2.5MG TABLET PO PRN ×2 (15:26→15:28)
[2021-06-13] MEDS ORDERED: IBUPROFEN 400 MG TABLET (FP) PO PRN ×2 (15:26→15:28)
[2021-06-13] MEDS ORDERED: MAG HYDROX/AL HYDROX/SIMETH 30 ML UNIT-DOSE CUP PO PRN ×2 (15:26→15:28)
[2021-06-13] MEDS ORDERED: MAGNESIUM HYDROX 2400MG/30ML ORAL SUSPENSION 30 ML CUP PO PRN ×2 (15:26→15:28)
[2021-06-13] MEDS ORDERED: MAGNESIUM CITRATE 300 ML BOTTLE PO PRN ×2 (15:26→15:28)
[2021-06-13] MEDS ORDERED: LOPERAMIDE HCL 2 MG CAPSULE PO PRN ×2 (15:26→15:28)
[2021-06-13] MEDS ORDERED: guaiFENesin 200 MG/10 ML 10 ML UNIT-DOSE CUPS PO PRN ×2 (15:26→15:28)
[2021-06-13] MEDS ORDERED: MENTHOL/PHENOL 1 EACH UD MM PRN (15:28)
[2021-06-13] MEDS ORDERED: hydrOXYzine PAMOATE 25 MG CAPSULE (FP) PO PRN (15:28)
[2021-06-13] MEDS ORDERED: ACETAMINOPHEN 325 MG TABLET (FP) PO PRN (15:28)
[2021-06-13] MEDS ORDERED: COLLOIDAL OATMEAL 1 BAR EACH TP PRN (15:31)
[2021-06-13] MEDS: THIAMINE HCL 100 MG TABLET (FP) PO SCH (21:10)
[2021-06-13] MEDS: QUEtiapine FUMARATE 100 MG TABLET (FP) PO SCH (21:10)
[2021-06-13] MEDS: PRAZOSIN HCL 1 MG CAPSULE PO SCH (21:10)
[2021-06-13] MEDS: MELATONIN 5 MG TABLETS PO SCH (21:11)
[2021-06-13] MEDS: hydrOXYzine PAMOATE 25 MG CAPSULE (FP) PO PRN (21:12)
[2021-06-13] MEDS: ACETAMINOPHEN 325 MG TABLET (FP) PO PRN (21:45)
[2021-06-13] MEDS ORDERED: THIAMINE HCL 100 MG TABLET (FP) PO SCH (22:00)
[2021-06-13] MEDS ORDERED: MELATONIN 5 MG TABLETS PO SCH (22:00)
[2021-06-14] MEDS ORDERED: PRENATAL VITAMINS W/ FOLIC ACID TABLET (FP) PO SCH (10:00)
[2021-06-14] MEDS ORDERED: NICOTINE 7 MG/24 HOURS TOPICAL PATCH TD SCH (10:00)
[2021-06-14] MEDS: PRENATAL VITAMINS W/ FOLIC ACID TABLET (FP) PO SCH (10:42)
[2021-06-14] MEDS: ESCITALOPRAM OXALATE 10 MG TABLET PO SCH (10:42)
[2021-06-14] MEDS: hydrOXYzine PAMOATE 25 MG CAPSULE (FP) PO PRN ×2 (10:42→21:27)
[2021-06-14] MEDS: PRAZOSIN HCL 1 MG CAPSULE PO SCH (21:26)
[2021-06-14] MEDS: QUEtiapine FUMARATE 100 MG TABLET (FP) PO SCH (21:27)
[2021-06-14] MEDS: THIAMINE HCL 100 MG TABLET (FP) PO SCH (21:27)
[2021-06-14] MEDS: MELATONIN 5 MG TABLETS PO SCH (21:27)
[2021-06-14] MEDS: ACETAMINOPHEN 325 MG TABLET (FP) PO PRN (22:08)
[2021-06-15] MEDS: PRENATAL VITAMINS W/ FOLIC ACID TABLET (FP) PO SCH (10:41)
[2021-06-15] MEDS: ESCITALOPRAM OXALATE 10 MG TABLET PO SCH (10:41)
[2021-06-15] MEDS: hydrOXYzine PAMOATE 25 MG CAPSULE (FP) PO PRN (10:42)
[2021-06-15] MEDS: MELATONIN 5 MG TABLETS PO SCH (22:08)
[2021-06-15] MEDS: THIAMINE HCL 100 MG TABLET (FP) PO SCH (22:08)
[2021-06-15] MEDS: PRAZOSIN HCL 1 MG CAPSULE PO SCH (22:10)
[2021-06-15] MEDS: QUEtiapine FUMARATE 50 MG TABLET PO SCH (22:10)
[2021-06-16] MEDS: ESCITALOPRAM OXALATE 10 MG TABLET PO SCH (10:26)
[2021-06-16] MEDS: hydrOXYzine PAMOATE 25 MG CAPSULE (FP) PO PRN ×2 (10:26→21:15)
[2021-06-16] MEDS: PRENATAL VITAMINS W/ FOLIC ACID TABLET (FP) PO SCH (10:26)
[2021-06-16] MEDS: MELATONIN 5 MG TABLETS PO SCH (21:14)
[2021-06-16] MEDS: PRAZOSIN HCL 1 MG CAPSULE PO SCH (21:14)
[2021-06-16] MEDS: THIAMINE HCL 100 MG TABLET (FP) PO SCH (21:17)
[2021-06-16] MEDS: QUEtiapine FUMARATE 50 MG TABLET PO SCH (21:17)
[2021-06-17] MEDS: PRENATAL VITAMINS W/ FOLIC ACID TABLET (FP) PO SCH (10:50)
[2021-06-17] MEDS: ESCITALOPRAM OXALATE 10 MG TABLET PO SCH (10:50)
[2021-06-17] MEDS: hydrOXYzine PAMOATE 25 MG CAPSULE (FP) PO PRN (10:51)
[2021-06-17] MEDS: MELATONIN 5 MG TABLETS PO SCH (21:13)
[2021-06-17] MEDS: PRAZOSIN HCL 1 MG CAPSULE PO SCH (21:14)
[2021-06-17] MEDS: THIAMINE HCL 100 MG TABLET (FP) PO SCH (21:14)
[2021-06-17] MEDS: QUEtiapine FUMARATE 100 MG TABLET (FP) PO SCH (21:14)
[2021-06-18] MEDS: hydrOXYzine PAMOATE 25 MG CAPSULE (FP) PO PRN ×2 (10:35→22:10)
[2021-06-18] MEDS: ESCITALOPRAM OXALATE 10 MG TABLET PO SCH (10:35)
[2021-06-18] MEDS: PRENATAL VITAMINS W/ FOLIC ACID TABLET (FP) PO SCH (10:35)
[2021-06-18 11:08] LABS: SARS-CoV-2 NAA Not Detected (Not Detected)
[2021-06-18] MEDS: THIAMINE HCL 100 MG TABLET (FP) PO SCH (22:10)
[2021-06-18] MEDS: PRAZOSIN HCL 1 MG CAPSULE PO SCH (22:10)
[2021-06-18] MEDS: QUEtiapine FUMARATE 100 MG TABLET (FP) PO SCH (22:10)
[2021-06-18] MEDS: MELATONIN 5 MG TABLETS PO SCH (22:10)
[2021-06-19] MEDS: ESCITALOPRAM OXALATE 10 MG TABLET PO SCH (11:14)
[2021-06-19] MEDS: hydrOXYzine PAMOATE 25 MG CAPSULE (FP) PO PRN ×3 (11:14→22:05)
[2021-06-19] MEDS: PRENATAL VITAMINS W/ FOLIC ACID TABLET (FP) PO SCH (11:14)
[2021-06-19] MEDS: PRAZOSIN HCL 1 MG CAPSULE PO SCH (22:04)
[2021-06-19] MEDS: THIAMINE HCL 100 MG TABLET (FP) PO SCH (22:05)
[2021-06-19] MEDS: QUEtiapine FUMARATE 100 MG TABLET (FP) PO SCH (22:05)
[2021-06-19] MEDS: MELATONIN 5 MG TABLETS PO SCH (22:05)
[2021-06-20] MEDS: PRENATAL VITAMINS W/ FOLIC ACID TABLET (FP) PO SCH (10:49)
[2021-06-20] MEDS: ESCITALOPRAM OXALATE 10 MG TABLET PO SCH (10:50)
[2021-06-20] MEDS: hydrOXYzine PAMOATE 25 MG CAPSULE (FP) PO PRN (10:50)
[2021-06-20] MEDS: THIAMINE HCL 100 MG TABLET (FP) PO SCH (21:15)
[2021-06-20] MEDS: PRAZOSIN HCL 1 MG CAPSULE PO SCH (21:15)
[2021-06-20] MEDS: MELATONIN 5 MG TABLETS PO SCH (21:15)
[2021-06-20] MEDS: QUEtiapine FUMARATE 100 MG TABLET (FP) PO SCH (21:15)
[2021-06-21] MEDS: ESCITALOPRAM OXALATE 10 MG TABLET PO SCH (10:25)
[2021-06-21] MEDS: PRENATAL VITAMINS W/ FOLIC ACID TABLET (FP) PO SCH (10:25)
[2021-06-21] MEDS: hydrOXYzine PAMOATE 25 MG CAPSULE (FP) PO PRN (10:27)
[2021-06-21] MEDS: ACETAMINOPHEN 325 MG TABLET (FP) PO PRN (10:27)
[2021-06-21] MEDS: ALBUTEROL SO4 HFA INHALER IH PRN (18:07)
[2021-06-21] MEDS: THIAMINE HCL 100 MG TABLET (FP) PO SCH (21:11)
[2021-06-21] MEDS: QUEtiapine FUMARATE 100 MG TABLET (FP) PO SCH (21:11)
[2021-06-21] MEDS: MELATONIN 5 MG TABLETS PO SCH (21:11)
[2021-06-21] MEDS: PRAZOSIN HCL 1 MG CAPSULE PO SCH (21:12)
[2021-06-22] MEDS: ACETAMINOPHEN 325 MG TABLET (FP) PO PRN (06:32)
[2021-06-22] MEDS: ESCITALOPRAM OXALATE 10 MG TABLET PO SCH (10:41)
[2021-06-22] MEDS: PRENATAL VITAMINS W/ FOLIC ACID TABLET (FP) PO SCH (10:41)
[2021-06-22] MEDS: hydrOXYzine PAMOATE 25 MG CAPSULE (FP) PO PRN ×2 (10:41→21:09)
[2021-06-22] MEDS: ALBUTEROL SO4 HFA INHALER IH PRN (10:41)
[2021-06-22] MEDS: QUEtiapine FUMARATE 100 MG TABLET (FP) PO SCH (21:08)
[2021-06-22] MEDS: THIAMINE HCL 100 MG TABLET (FP) PO SCH (21:08)
[2021-06-22] MEDS: PRAZOSIN HCL 1 MG CAPSULE PO SCH (21:08)
[2021-06-22] MEDS: MELATONIN 5 MG TABLETS PO SCH (21:08)
[2021-06-23] MEDS: PRENATAL VITAMINS W/ FOLIC ACID TABLET (FP) PO SCH (10:31)
[2021-06-23] MEDS: hydrOXYzine PAMOATE 25 MG CAPSULE (FP) PO PRN ×2 (10:32→21:06)
[2021-06-23] MEDS: ACETAMINOPHEN 325 MG TABLET (FP) PO PRN (10:32)
[2021-06-23] MEDS: ESCITALOPRAM OXALATE 10 MG TABLET PO SCH (10:33)
[2021-06-23] MEDS: THIAMINE HCL 100 MG TABLET (FP) PO SCH (21:06)
[2021-06-23] MEDS: QUEtiapine FUMARATE 100 MG TABLET (FP) PO SCH (21:06)
[2021-06-23] MEDS: MELATONIN 5 MG TABLETS PO SCH (21:06)
[2021-06-23] MEDS: PRAZOSIN HCL 1 MG CAPSULE PO SCH (21:06)
[2021-06-24] MEDS: PRENATAL VITAMINS W/ FOLIC ACID TABLET (FP) PO SCH (10:54)
[2021-06-24] MEDS: hydrOXYzine PAMOATE 25 MG CAPSULE (FP) PO PRN ×2 (10:54→22:09)
[2021-06-24] MEDS: ESCITALOPRAM OXALATE 10 MG TABLET PO SCH (10:54)
[2021-06-24] MEDS: THIAMINE HCL 100 MG TABLET (FP) PO SCH (22:09)
[2021-06-24] MEDS: PRAZOSIN HCL 1 MG CAPSULE PO SCH (22:09)
[2021-06-24] MEDS: MELATONIN 5 MG TABLETS PO SCH (22:09)
[2021-06-24] MEDS: QUEtiapine FUMARATE 100 MG TABLET (FP) PO SCH (22:09)
[2021-06-25] MEDS: PRENATAL VITAMINS W/ FOLIC ACID TABLET (FP) PO SCH (11:24)
[2021-06-25] MEDS: ESCITALOPRAM OXALATE 10 MG TABLET PO SCH (11:25)
[2021-06-25] MEDS: hydrOXYzine PAMOATE 25 MG CAPSULE (FP) PO PRN (11:25)
[2021-06-25] MEDS: PRAZOSIN HCL 1 MG CAPSULE PO SCH (21:33)
[2021-06-25] MEDS: QUEtiapine FUMARATE 100 MG TABLET (FP) PO SCH (21:33)
[2021-06-25] MEDS: THIAMINE HCL 100 MG TABLET (FP) PO SCH (21:33)
[2021-06-25] MEDS: MELATONIN 5 MG TABLETS PO SCH (21:33)
[2021-06-26] MEDS: ESCITALOPRAM OXALATE 10 MG TABLET PO SCH (11:02)
[2021-06-26] MEDS: PRENATAL VITAMINS W/ FOLIC ACID TABLET (FP) PO SCH (11:03)
[2021-06-26] MEDS: hydrOXYzine PAMOATE 25 MG CAPSULE (FP) PO PRN (11:03)
[2021-06-26] MEDS: PRAZOSIN HCL 1 MG CAPSULE PO SCH (22:12)
[2021-06-26] MEDS: THIAMINE HCL 100 MG TABLET (FP) PO SCH (22:12)
[2021-06-26] MEDS: QUEtiapine FUMARATE 100 MG TABLET (FP) PO SCH (22:12)
[2021-06-26] MEDS: MELATONIN 5 MG TABLETS PO SCH (22:12)
[2021-06-27] MEDS: ESCITALOPRAM OXALATE 10 MG TABLET PO SCH (10:30)
[2021-06-27] MEDS: PRENATAL VITAMINS W/ FOLIC ACID TABLET (FP) PO SCH (10:30)
[2021-06-27] MEDS: hydrOXYzine PAMOATE 25 MG CAPSULE (FP) PO PRN (10:31)
[2021-06-27] MEDS: QUEtiapine FUMARATE 100 MG TABLET (FP) PO SCH (21:31)
[2021-06-27] MEDS: THIAMINE HCL 100 MG TABLET (FP) PO SCH (21:31)
[2021-06-27] MEDS: MELATONIN 5 MG TABLETS PO SCH (21:31)
[2021-06-27] MEDS: PRAZOSIN HCL 1 MG CAPSULE PO SCH (21:32)
[2021-06-28 07:41] VITALS: BP 128/90; PULSE 75; TEMP 98
[2021-06-28] MEDS: PRENATAL VITAMINS W/ FOLIC ACID TABLET (FP) PO SCH (10:31)
[2021-06-28] MEDS: ESCITALOPRAM OXALATE 10 MG TABLET PO SCH (10:31)
[2021-06-28] MEDS: hydrOXYzine PAMOATE 25 MG CAPSULE (FP) PO PRN (10:34)
== END 2021-06-28 11:50 | disposition home or self-care (01) | DRG 772 ==
LOC: YASAS 14:34 → Y5N 14:35
PROVIDERS: ADMIT Allergy & Immunology; ATTEND Allergy & Immunology
PROC: HZ42ZZZ Group Counseling for Substance Abuse Treatment, Cognitive-Behavioral (ICD-10-PCS; principal; 2021-06-13)
DX: F10.20 Alcohol dependence, uncomplicated (principal); F14.20 Cocaine dependence, uncomplicated; F15.20 Other stimulant dependence, uncomplicated; F19.282 Other psychoactive substance dependence with psychoactive substance-induced sleep disorder; F19.280 Other psychoactive substance dependence with psychoactive substance-induced anxiety disorder; J45.20 Mild intermittent asthma, uncomplicated
CPT/HCPCS: 36415; 82607; 82746; 83540; 83550; C9803; U0003; U0005

== ENCOUNTER 2021-10-31 16:38 | Emergency (ER) | payer OTHER ==
[2021-10-31 16:46] VITALS: BP 121/79; PULSE 75; TEMP 97.8; BMI 24.9
[2021-11-01] MEDS ORDERED: QUEtiapine FUMARATE 100 MG TABLET (FP) PO SCH (22:00)
[2021-11-01] MEDS ORDERED: PRAZOSIN HCL 2 MG CAPSULE PO SCH (22:00)
[2021-11-02] MEDS ORDERED: ESCITALOPRAM OXALATE 10 MG TABLET PO SCH (10:00)
== END 2021-10-31 19:33 | disposition home or self-care (01) ==
LOC: JERFT 16:38
DX: M25.571 Pain in right ankle and joints of right foot (principal)
CPT/HCPCS: 73610-TC-RT-FY; 73630-TC-RT-FY; 99283-25

== ENCOUNTER 2021-10-31 20:28 | Inpatient (IN) | payer OTHER ==
[2021-10-31] MEDS ORDERED: BENZOCAINE/MENTHOL (CHLORASEPTIC ) LOZENGE MM PRN (20:57)
[2021-10-31] MEDS ORDERED: MAGNESIUM CITRATE 300 ML BOTTLE PO PRN (20:57)
[2021-10-31] MEDS ORDERED: IBUPROFEN 400 MG TABLET (FP) PO PRN (20:57)
[2021-10-31] MEDS ORDERED: NICOTINE POLACRILEX 2 MG GUM BUC PRN (20:57)
[2021-10-31] MEDS ORDERED: guaiFENesin 200 MG/10 ML 10 ML UNIT-DOSE CUPS PO PRN (20:57)
[2021-10-31] MEDS ORDERED: BISMUTH SUBSALICYLATE 524 MG/30 ML PO PRN (20:57)
[2021-10-31] MEDS ORDERED: P-EPHED 60MG/TRIPROLIDI 2.5MG TABLET PO PRN (20:57)
[2021-10-31] MEDS ORDERED: MAGNESIUM HYDROX 2400MG/30ML ORAL SUSPENSION 30 ML CUP PO PRN (20:57)
[2021-10-31] MEDS ORDERED: NICOTINE 10 MG CARTRIDGE (INHALER) IH PRN (20:57)
[2021-10-31] MEDS ORDERED: MAG HYDROX/AL HYDROX/SIMETH 30 ML UNIT-DOSE CUP PO PRN (20:57)
[2021-10-31] MEDS ORDERED: DICYCLOMINE HCL 10 MG CAPSULE PO PRN (20:57)
[2021-10-31] MEDS ORDERED: ONDANSETRON *ODT* 4 MG TABLET SL PRN (20:57)
[2021-10-31] MEDS ORDERED: LOPERAMIDE HCL 2 MG CAPSULE PO PRN (20:57)
[2021-10-31] MEDS ORDERED: ACETAMINOPHEN 325 MG TABLET (FP) PO PRN ×2 (20:57)
[2021-10-31] MEDS ORDERED: diazePAM 5 MG TABLET PO PRN (21:00)
[2021-10-31 21:10] VITALS: BMI 24.9
[2021-11-01] MEDS: METHOCARBAMOL 500 MG TABLET PO PRN ×2 (01:50→18:43)
[2021-11-01] MEDS: IBUPROFEN 600 MG TABLET (FP) PO PRN ×2 (01:50→18:43)
[2021-11-01] MEDS: BACITRACIN 0.9 GM PACKET TP SCH ×3 (02:05→22:56)
[2021-11-01] MEDS: THIAMINE HCL 100 MG TABLET (FP) PO SCH ×2 (02:05→22:54)
[2021-11-01] MEDS: diazePAM 5 MG TABLET PO SCH ×5 (02:05→22:54)
[2021-11-01] MEDS: PRENATAL VITAMINS W/ FOLIC ACID TABLET (FP) PO SCH (10:33)
[2021-11-01] MEDS: hydrOXYzine PAMOATE 25 MG CAPSULE (FP) PO PRN (18:43)
[2021-11-01] MEDS: MELATONIN 5 MG TABLETS PO PRN (22:54)
[2021-11-02] MEDS: diazePAM 5 MG TABLET PO SCH ×3 (07:11→23:06)
[2021-11-02] MEDS: IBUPROFEN 600 MG TABLET (FP) PO PRN ×2 (07:12→23:07)
[2021-11-02] MEDS: METHOCARBAMOL 500 MG TABLET PO PRN ×2 (07:12→23:07)
[2021-11-02] MEDS: PRENATAL VITAMINS W/ FOLIC ACID TABLET (FP) PO SCH (10:53)
[2021-11-02] MEDS: BACITRACIN 0.9 GM PACKET TP SCH ×2 (10:54→23:36)
[2021-11-02] MEDS: THIAMINE HCL 100 MG TABLET (FP) PO SCH (23:06)
[2021-11-02] MEDS: MELATONIN 5 MG TABLETS PO PRN (23:06)
[2021-11-03] MEDS: METHOCARBAMOL 500 MG TABLET PO PRN (06:54)
[2021-11-03] MEDS: diazePAM 5 MG TABLET PO SCH ×2 (06:54→18:36)
[2021-11-03] MEDS: IBUPROFEN 600 MG TABLET (FP) PO PRN ×2 (06:54→12:58)
[2021-11-03] MEDS ORDERED: FLUoxetine HCL 10 MG CAPSULE PO SCH (10:00)
[2021-11-03] MEDS: PRENATAL VITAMINS W/ FOLIC ACID TABLET (FP) PO SCH (10:36)
[2021-11-03] MEDS: BACITRACIN 0.9 GM PACKET TP SCH ×2 (10:36→23:17)
[2021-11-03] MEDS: hydrOXYzine PAMOATE 25 MG CAPSULE (FP) PO PRN (12:58)
[2021-11-03 13:43] LABS: HEMATOCRIT 35.4 % (32.4-45.2); HEMOGLOBIN 11.5 GM/dL (10.7-15.3); MCH 27.2 pg (25.7-33.7); MCHC 32.5 g/dl (32.0-36.0); MEAN CELL VOLUME 83.8 fl (80-96); MEAN PLT VOLUME 8.5 fl (7.5-11.1); PLATELET COUNT 305 10^3/uL (134-434); RBC 4.22 M/mm3 (3.60-5.2); RDW 16.8 % (11.6-15.6); WHITE BLOOD COUNT 4.4 K/mm3 (4.0-10.0)
[2021-11-03 14:02] LABS: ALBUMIN 2.8 g/dl (3.4-5.0); BLOOD UREA NITROGEN 10.8 mg/dL (7-18); CALCIUM 8.8 mg/dL (8.5-10.1)
[2021-11-03 14:05] LABS: CREATININE 0.7 mg/dL (0.55-1.3)
[2021-11-03 14:07] LABS: BILIRUBIN,TOTAL 0.3 mg/dL (0.2-1); TOT PROT 6.6 g/dl (6.4-8.2)
[2021-11-03] MEDS ORDERED: PRAZOSIN HCL 1 MG CAPSULE PO SCH (22:00)
[2021-11-03] MEDS ORDERED: QUEtiapine FUMARATE 100 MG TABLET (FP) PO SCH (22:00)
[2021-11-03] MEDS: THIAMINE HCL 100 MG TABLET (FP) PO SCH (23:18)
[2021-11-04] MEDS ORDERED: diazePAM 5 MG TABLET PO ONE (06:00)
[2021-11-04] MEDS: METHOCARBAMOL 500 MG TABLET PO PRN (07:50)
[2021-11-04] MEDS: IBUPROFEN 600 MG TABLET (FP) PO PRN (07:50)
[2021-11-04 09:10] VITALS: BP 129/73; PULSE 81; TEMP 96.9
== END 2021-11-04 09:32 | disposition home or self-care (01) | DRG 774 ==
LOC: YASAS 20:28 → Y3N 22:29
PROVIDERS: ADMIT Allergy & Immunology; ATTEND Surgery
PROC: HZ2ZZZZ Detoxification Services for Substance Abuse Treatment (ICD-10-PCS; principal; 2021-10-31)
DX: F14.20 Cocaine dependence, uncomplicated (principal); F13.20 Sedative, hypnotic or anxiolytic dependence, uncomplicated; F15.20 Other stimulant dependence, uncomplicated; F43.10 Post-traumatic stress disorder, unspecified; F41.9 Anxiety disorder, unspecified; J45.909 Unspecified asthma, uncomplicated; G47.00 Insomnia, unspecified; M25.571 Pain in right ankle and joints of right foot; L98.8 Other specified disorders of the skin and subcutaneous tissue; Z56.0 Unemployment, unspecified; Z59.00 Homelessness unspecified
CPT/HCPCS: 36415; 80053; 81025; 85027; 86780; C9803-CS; U0003; U0005

== ENCOUNTER 2022-12-10 09:07 | Inpatient (IN) | payer OTHER ==
[2022-12-10 09:35] VITALS: BMI 25.6
[2022-12-10] MEDS ORDERED: BENZOCAINE/MENTHOL (CHLORASEPTIC ) LOZENGE MM PRN (11:16)
[2022-12-10] MEDS ORDERED: POLYETHYLENE GLYCOL (HEALTHYLAX) 3350 17 GM PACKET PO PRN (11:16)
[2022-12-10] MEDS ORDERED: BISMUTH SUBSALICYLATE 524 MG/30 ML PO PRN (11:16)
[2022-12-10] MEDS ORDERED: BENZONATATE 200 MG CAPSULE PO PRN (11:16)
[2022-12-10] MEDS ORDERED: NALOXONE HCL (KLOXXADO) 8 MG SPRAY NS PRN (11:16)
[2022-12-10] MEDS ORDERED: ONDANSETRON *ODT* 4 MG TABLET SL PRN (11:16)
[2022-12-10] MEDS ORDERED: MAGNESIUM HYDROX 2400MG/30ML ORAL SUSPENSION 30 ML CUP PO PRN (11:16)
[2022-12-10] MEDS ORDERED: ACETAMINOPHEN 325 MG TABLET (FP) PO PRN (11:16)
[2022-12-10] MEDS ORDERED: guaiFENesin 600 MG TABLET.ER (FP) PO PRN (11:16)
[2022-12-10] MEDS ORDERED: NALOXONE HCL 0.4 MG/ML VIAL IM PRN (11:16)
[2022-12-10] MEDS ORDERED: DICYCLOMINE HCL 10 MG CAPSULE PO PRN (11:16)
[2022-12-10] MEDS ORDERED: IBUPROFEN 400 MG TABLET (FP) PO PRN (11:16)
[2022-12-10] MEDS ORDERED: LOPERAMIDE HCL 2 MG CAPSULE PO PRN (11:16)
[2022-12-10] MEDS ORDERED: IBUPROFEN 600 MG TABLET (FP) PO PRN (11:16)
[2022-12-10] MEDS ORDERED: MAG HYDROX/AL HYDROX/SIMETH 30 ML UNIT-DOSE CUP PO PRN (11:16)
[2022-12-10] MEDS ORDERED: ALBUTEROL SO4 HFA INHALER IH PRN (11:32)
[2022-12-10] MEDS ORDERED: cloNIDine HCL 0.1 MG TABLET PO ONE (11:45)
[2022-12-10] MEDS ORDERED: cloNIDine HCL 0.1 MG TABLET ONE (11:58)
[2022-12-10] MEDS: diazePAM 5 MG TABLET PO PRN (12:30)
[2022-12-10] MEDS: diazePAM 5 MG TABLET PO SCH ×2 (17:43→22:28)
[2022-12-10] MEDS: PRAZOSIN HCL 1 MG CAPSULE PO SCH (22:27)
[2022-12-10] MEDS: THIAMINE HCL 100 MG TABLET (FP) PO SCH (22:27)
[2022-12-10] MEDS: QUEtiapine FUMARATE 50 MG TABLET PO SCH (22:27)
[2022-12-10] MEDS: MELATONIN 5 MG TABLETS PO SCH (22:28)
[2022-12-11] MEDS: diazePAM 5 MG TABLET PO SCH ×4 (05:46→22:27)
[2022-12-11 10:16] LABS: HEMATOCRIT 37.5 % (32.4-45.2); HEMOGLOBIN 12.3 GM/dL (10.7-15.3); MCH 26.6 pg (25.7-33.7); MCHC 32.8 g/dl (32.0-36.0); MEAN CELL VOLUME 81.1 fl (80-96); MEAN PLT VOLUME 8.6 fl (7.5-11.1); PLATELET COUNT 236 10^3/uL (134-434); RBC 4.63 M/mm3 (3.60-5.2); RDW 16.3 % (11.6-15.6); WHITE BLOOD COUNT 4.5 K/mm3 (4.0-10.0)
[2022-12-11 10:19] LABS: BLOOD UREA NITROGEN 8.5 mg/dL (7-18); CALCIUM 8.4 mg/dL (8.5-10.1)
[2022-12-11 10:20] LABS: ALBUMIN 2.9 g/dl (3.4-5.0)
[2022-12-11 10:24] LABS: BILIRUBIN,TOTAL 0.4 mg/dL (0.2-1); CREATININE 0.7 mg/dL (0.55-1.3); TOT PROT 6.3 g/dl (6.4-8.2)
[2022-12-11] MEDS: PRENATAL VITAMINS W/ FOLIC ACID TABLET (FP) PO SCH (10:29)
[2022-12-11] MEDS: ESCITALOPRAM OXALATE 10 MG TABLET PO SCH (10:31)
[2022-12-11] MEDS: METHOCARBAMOL 500 MG TABLET PO PRN (10:31)
[2022-12-11] MEDS: hydrOXYzine PAMOATE 25 MG CAPSULE (FP) PO PRN ×2 (10:31→18:13)
[2022-12-11] MEDS: PRAZOSIN HCL 1 MG CAPSULE PO SCH (22:26)
[2022-12-11] MEDS: MELATONIN 5 MG TABLETS PO SCH (22:26)
[2022-12-11] MEDS: THIAMINE HCL 100 MG TABLET (FP) PO SCH (22:26)
[2022-12-11] MEDS: QUEtiapine FUMARATE 50 MG TABLET PO SCH (22:26)
[2022-12-12] MEDS: diazePAM 5 MG TABLET PO SCH ×3 (05:29→22:11)
[2022-12-12] MEDS: ESCITALOPRAM OXALATE 10 MG TABLET PO SCH (10:22)
[2022-12-12] MEDS: PRENATAL VITAMINS W/ FOLIC ACID TABLET (FP) PO SCH (10:22)
[2022-12-12] MEDS: hydrOXYzine PAMOATE 25 MG CAPSULE (FP) PO PRN (10:24)
[2022-12-12] MEDS: amLODIPine BESYLATE 5 MG TABLET (FP) PO SCH (13:39)
[2022-12-12] MEDS: diazePAM 5 MG TABLET PO PRN (17:16)
[2022-12-12] MEDS: MELATONIN 5 MG TABLETS PO SCH (22:10)
[2022-12-12] MEDS: THIAMINE HCL 100 MG TABLET (FP) PO SCH (22:10)
[2022-12-12] MEDS: QUEtiapine FUMARATE 50 MG TABLET PO SCH (22:10)
[2022-12-12] MEDS: PRAZOSIN HCL 1 MG CAPSULE PO SCH (22:11)
[2022-12-13] MEDS: diazePAM 5 MG TABLET PO SCH ×2 (05:46→17:43)
[2022-12-13 06:58] VITALS: RESP 18
[2022-12-13] MEDS: PRENATAL VITAMINS W/ FOLIC ACID TABLET (FP) PO SCH (10:30)
[2022-12-13] MEDS: ESCITALOPRAM OXALATE 10 MG TABLET PO SCH (10:31)
[2022-12-13] MEDS: amLODIPine BESYLATE 5 MG TABLET (FP) PO SCH (10:31)
[2022-12-13] MEDS: diazePAM 5 MG TABLET PO PRN (10:32)
[2022-12-13] MEDS: METHOCARBAMOL 500 MG TABLET PO PRN ×2 (15:35→22:31)
[2022-12-13] MEDS: hydrOXYzine PAMOATE 25 MG CAPSULE (FP) PO PRN ×2 (15:35→22:30)
[2022-12-13] MEDS: PRAZOSIN HCL 1 MG CAPSULE PO SCH (22:30)
[2022-12-13] MEDS: QUEtiapine FUMARATE 50 MG TABLET PO SCH (22:30)
[2022-12-13] MEDS: MELATONIN 5 MG TABLETS PO SCH (22:30)
[2022-12-13] MEDS: THIAMINE HCL 100 MG TABLET (FP) PO SCH (22:31)
[2022-12-14] MEDS ORDERED: diazePAM 5 MG TABLET PO ONE (06:00)
[2022-12-14 09:22] VITALS: BP 124/75; PULSE 96; TEMP 98.3
[2022-12-14] MEDS: ESCITALOPRAM OXALATE 10 MG TABLET PO SCH (09:36)
[2022-12-14] MEDS: PRENATAL VITAMINS W/ FOLIC ACID TABLET (FP) PO SCH (09:36)
[2022-12-14] MEDS: amLODIPine BESYLATE 5 MG TABLET (FP) PO SCH (09:36)
== END 2022-12-14 10:00 | disposition home or self-care (01) | DRG 774 ==
LOC: YASAS 09:07 → Y6N 12:05
PROVIDERS: ADMIT Allergy & Immunology; ATTEND Surgery
PROC: HZ2ZZZZ Detoxification Services for Substance Abuse Treatment (ICD-10-PCS; principal; 2022-12-10)
DX: F10.230 Alcohol dependence with withdrawal, uncomplicated (principal); F14.20 Cocaine dependence, uncomplicated; F31.9 Bipolar disorder, unspecified; F43.10 Post-traumatic stress disorder, unspecified; F41.8 Other specified anxiety disorders; I10 Essential (primary) hypertension; J45.20 Mild intermittent asthma, uncomplicated; Z28.310 Unvaccinated for COVID-19; Z28.9 Immunization not carried out for unspecified reason; Z59.00 Homelessness unspecified; Z56.0 Unemployment, unspecified
CPT/HCPCS: 36415; 71046-TC-FY; 80053; 81025; 85027; 86780; 87635; 87811; Q0162